=== PATIENT | male | born 1950 | race Caucasian/White ===

== ENCOUNTER 2016-09-13 05:44 | Day surgery (SDC) | payer OTHER ==
[2016-09-13] VITALS (8 sets, daily range): BP systolic 130–166; BP diastolic 69–91; PULSE 62–84; RESP 13–20; O2SAT 94–99
[~2016-09-13] VITALS: Ht 180.3 cm; Wt 109.7 kg
[~2016-09-13 05:44] MED LIST: AMLO5TAB2 PO; ATEN50TA PO; DICL100G8 TOPICAL; GLIP5TAB21 PO; KRIL1CAP2 PO; LOSA100T3 PO; Lactated Ringer's 1,000 ML IV ONE; METF-495 PO; MULT-1073 PO; PANT40TA2 PO; SILD100T PO; VIT1TABL83 PO
[2016-09-13] MEDS ORDERED: Propofol 10,000 mCg/mL 20 mL Inj ONE (05:45)
[2016-09-13] MEDS ORDERED: Ondansetron 2 mg/mL 2 mL Inj ONE (05:45)
[2016-09-13] MEDS ORDERED: Neostigmine 1 mg/mL 10 mL Inj ONE (05:45)
[2016-09-13] MEDS ORDERED: Glycopyrrolate 0.2 MG/ML 1mL Inj ONE (05:45)
[2016-09-13] MEDS ORDERED: fentaNYL-PF 50 mCg/mL 2 mL Inj ONE (05:45)
[2016-09-13] MEDS ORDERED: MetoCLOpramide 5 mg/mL 2 mL Inj ONE (05:45)
[2016-09-13] MEDS ORDERED: Succinylcholine Chloride 20 mg/mL 5 mL Inj ONE (05:45)
[2016-09-13] MEDS ORDERED: Rocuronium 10 mg/mL 5 mL Inj ONE (05:45)
[2016-09-13] MEDS ORDERED: Famotidine 20 mg/50 mL NS Premix IV ONE ×2 (05:45→07:10)
[2016-09-13] MEDS ORDERED: Lactated Ringer's 1,000 ML IV ONE ×2 (06:00→06:55)
[2016-09-13] MEDS ORDERED: Lactated Ringer's 500 ML IV PRN (07:42)
[2016-09-13] MEDS ORDERED: Lactated Ringer's 1,000 ML IV SCH (07:42)
[2016-09-13] MEDS ORDERED: MetoCLOpramide 5 mg/mL 2 mL Inj IVPUSH PRN (07:45)
[2016-09-13] MEDS ORDERED: Phenylephrine 10,000 mCg/mL Inj IVPUSH PRN (07:45)
[2016-09-13] MEDS ORDERED: fentaNYL-PF 50 mCg/mL 2 mL Inj IVPUSH PRN (07:45)
[2016-09-13] MEDS ORDERED: Labetalol 5 mg/mL 4 mL Inj IV PRN (07:45)
[2016-09-13] MEDS ORDERED: Atropine 0.4 mg/mL Inj IVPUSH PRN (07:45)
[2016-09-13] MEDS ORDERED: Ondansetron 2 mg/mL 2 mL Inj IVPUSH PRN (07:45)
[2016-09-13] MEDS ORDERED: HYDROmorphone 1 mg/mL Inj IVPUSH PRN (07:45)
[2016-09-13] MEDS ORDERED: EPHEDrine Sulfate 50 mg/mL Inj IVPUSH PRN (07:45)
--- NOTE | 2016-09-13 07:46 | PCM.HPANE ---
Patient Data Surgeon Admitting Provider: Attending Provider:Reza Talamantes DO Primary Care Physician:Bud Dior MD Other Provider:Shannan Gardner Anesthesia Reason for Visit Left Medial Meniscal Tear Ht/WT & BMI Height (Feet): 5 Height (Inches): 11 Weight (Kilograms): 109.7 Body Mass Index 33.00 Allergies Coded Allergies: sucralfate (Verified Adverse Reaction, Severe, SEVERE MUSCLE CRAMPS, ) Past Anesthesia History Anesthesia History: Denies:: Abnormal Airway, Anesthesia Reactions, Difficult Intubation, Fam Anesthesia Reaction, Fam Malignant Hypertherm, Malignant Hyperthermia Diabetes History Hx Diabetes?: Yes Type of Diabetes: Type II Glycemic Control: Oral Medication MRSA MRSA: No Medications Blood Thinner: Aspirin Hypertension Medication: Yes (LOSARTAN,AMLODIPINE) Home Meds Incl Beta Cheikh: Yes Date Beta Cheikh Taken: September 13, 2016 Time Beta Cheikh Taken: 0500 Reported Medications Diclofenac Gel (Voltaren Gel)100 Gm Tube1 Applic TOPICAL DAILY PRN PRN #1 TUBE 09/07/16 Krill Oil/[place]-3/Dha/Epa ([place]-3 Krill Oil Softgel)1 Each Capsule1 Each PO TID 09/07/16 Multivits-Min/FA/Lycopene/Lut (Centrum Silver Tablet)1 Each Tablet1 Each PO DAILY 09/07/16 Vit B Comp/C/FA/Iron/Vit E (Vitamin B Complex Tablet)1 Each Tablet1 Each PO DAILY 09/07/16 Amlodipine 5 Mg Tablet5 Mg PO DAILY Ref 0 09/07/16 Sildenafil Citrate (Viagra)100 Mg [id number] Mg PO UD PRN ERECTILE DYSFUNCTION Ref 0 09/03/14 Metformin ER 500 Mg Tab.er.241,000 Mg PO DAILYWD 30 Days Ref 0 09/03/14 Multivits-Min/FA/Lycopene/Lut (Centrum Silver Tablet)1 Each Tablet1 Each PO DAILY 09/03/[address] (Protonix)40 Mg Tablet.dr40 Mg PO BID 30 Days Ref 0 11/15/13 Glipizide ER 10 Mg Tab.er.2410 Mg PO BID 30 Days 11/15/13 Losartan Potassium (Cozaar)100 Mg Rqsxhi616 Mg PO DAILY 11/15/13 Atenolol 50 Mg Gjjjnf80 Mg PO DAILY #30 TABLET Ref 0 11/15/13 Discontinued Reported Medications Cholecalciferol (Vitamin D3) (Vitamin D3)4,000 Unit Capsule4,000 Unit PO DAILY 09/03/14 Tadalafil (Cialis)10 Mg Tpbgis31 Mg PO PRN PRN ERECTILE DYSFUNCTION 30 Days Ref 0 As directed by physician 09/03/14 Triamterene/HCTZ 37.5-25 mg (Dyazide 37.5-25 mg)1 Each Capsule1 Each PO DAILY 30 Days Ref 0 11/15/13 History History of ENT Problems?: Yes HEENT History: Positive for:: Dysphagia Sinus Problem (HX SINUSITIS) Denies:: Abnormal Airway Cataracts Difficult Intubation Glaucoma Hearing Problem TMJ Denture Type: None Teeth Condition: Within Normal Limits Hx of Heart Problems?: Yes Cardiovascular History: Positive for:: Hypertension (HYPERLIPIDEMIA) Denies:: AICD Abdominal Aortic Aneurism Atrial Fibrillation Cardiac Surgery Chest Pain Congestive Heart Failure Coronary Artery Disease Edema Heart Murmur Irregular Heartbeat Pacemaker Peripheral Vascular Rheumatic Fever Thrombophlebitis Valvular Heart Disease Hx of Respiratory Problem?: No Respiratory History: Denies:: Asthma COPD Chest Surgery Cough Dyspnea Emphysema Hemoptysis Oxygen Administration Pneumonia Pulmonary Embolism Tuberculosis Use of C-PAP Machine (SLEEP STUDY IN PAST-NO [place] RECOMMENDED) Use of Inhalers / NEBS Hx Neurologic Problems?: Yes Neurological History: Denies:: Alzheimer's Disease CVA Dementia Dizziness Headaches Multiple Sclerosis Parkinson's Disease Peripheral Neuropathy Seizures TIA Other Neurological Pertinent: C/OF INSOMNIA Hx of GI Problems?: Yes Gastrointestinal History: Positive for:: Gastroesphageal Reflux Heartburn Denies:: Cirrhosis Diverticulitis Gall Bladder Disease Gastrointestinal Bleeding Hepatitis Hiatal Hernia Liver Disease Rectal Bleeding Other GI Pertinent History: S/P UMBILICAL HERNIA RPR Hx of Problems?: Yes Genitourinary History: Positive for:: Kidney Stones (HX OF RT KIDNEY STONE- PROBABLY PASSED ON OWN) Denies:: HX of Hemodialysis Urinary Tract Infection HX of Peritoneal Dialysis: No Other Pertinent History: ED Male Hx: Denies:: Prostate Problems Scrotal Mass Testicular Surgery Skin History: Positive for:: History Skin Disorders? (S/P MOLE EXC RT LEG W/ POST OP INFECTION) Denies:: Pressure Ulcers Hx Musculoskeletal Problems?: Yes Musculoskeletal History: Positive for:: Musculoskeletal Trauma (LT KNEE MEDIAL MENISCAL TEAR=CURRENT PROBLEM) Denies:: Back Injury Degenerative Joint Fibromyalgia Joint Replacement Myasthenia Gravis Osteoarthritis (PSORIATIC ARTHRITIS) Rheumatoid Arthritis Systemic Lupus Hx of Psycho/Social Problems?: No Psycho Social History: Denies:: Anxiety Bipolar Disorder Hx Depression Suicide Attempt Hx Surgeries?: Yes (UMBILICAL HERNIA,EXC MOLE RT LEG) Hx Any Other Health Problems?: Yes Other History: Denies:: Cancer Endocrine Disease Hospitalization Thyroid Disease History Blood Transfusions: Positive for:: Accept Blood Products? Denies:: Blood Transfusions Hx Diabetes: Yes Hx Alcohol Use: NoHx Substance Use: No Smoking Status: Never Smoker Have You Smoked inLast 12 mo: No Stop/Bang S-Snoring: Do You Snore Loudly: No T-Tired: feel tired, fatigued: Yes O-Obsered: Observed not breath: No P-Blood Pressure: treated: Yes B- Body Mass Index > 35 kg/m2: No A- Age over 50: Yes N- Neck Large Circumference: Yes G- Gender Male: Yes JESSICA Total Score: 5 Risk Assessment Category Category 1A: Patient has history of documented sleep apnea, and HAS NOT received any narcotic, sedative or anesthesia administration during this stay. Category 1B: Patient has history of documented sleep apnea, and HAS received any narcotic , sedative or anesthesia administration during this stay Category 2: Patient has SUSPECTED Obstructive Sleep Apnea, and HAS received any narcotic , sedative or anesthesia administration during this stay. Category 3: Patient has SUSPECTED Obstructive Sleep Apnea and HAS NOT received narcotic, sedative or anesthesia administration during this stay. Category 4: Outpatient in Procedural Areas with known sleep apnea or who screen positive for High Risk via the STOP/BANG questionnaire. Exam Exam Vital Signs Vital Signs Date Time Temp Pulse Resp B/P Pulse Ox O2 Delivery O2 Flow Rate FiO2 09/13/16 06:53 36.3 69 16 147/91 96 Room Air General Appearance: Alert, Oriented X3, Cooperative, No Acute Distress HEENT/AIRWAY: MP 2 Lungs: Clear to Auscultation, Normal Air Movement Heart: Exam Unremarkable, Regular Rate/Rhythm, No Murmurs/Rubs/Gallops Meds/Labs/Diagnostics Admission Meds Current Medications Lactated Ringer's (Lr) 1,000 ml @ ud STK-MED ONCE IV Last administered on 09/13t 06:55; Start 09/13/16 at 06:55; Stop 09/13/16 at 06:56; Status DC Plan Impression Patient chart reviewed, patient interviewed and anesthestic plan with risks, benefits, and alternatives discussed, and informed consent obtained. NPO per Anesth. Guidelines: Yes ASA Physical Status: ASA2 Mod Systemic Disease Anesthetic Plan: GA Bene/Risks/Altern/Consents: Yes HP Complete Prior to Induction: Yes Reza Kerr MD September 13, 2016 06:59
[2016-09-13] MEDS ORDERED: Lidocaine 2%-Epi 1:100,000 20 mL Inj INFILTRATE ONE (07:52)
[2016-09-13] MEDS ORDERED: Ropivacaine-PF 0.5% 30 mL Inj INFILTRATE ONE (07:59)
[2016-09-13] MEDS ORDERED: HYDROcodone-APAP 5-325 mg Tablet PO PRN (08:20)
--- NOTE | 2016-09-13 09:23 | OP ---
[address] [address] OPERATIVE REPORT PATIENT: SAMANTHA REYNOSO : 1950 MR#: [id number] ADMIT: 09/13/2016 JOB ID: [id number] DATE OF SURGERY: 09/13/2016 PREOPERATIVE DIAGNOSIS(ES): Left knee torn medial meniscus. POSTOPERATIVE DIAGNOSIS(ES): Left knee torn medial meniscus. PROCEDURE: Left knee video arthroscopy with partial medial meniscectomy. SURGEON: Reza Talamantes D.O. ANESTHESIA: General. INDICATIONS: The patient is a 66-year-old male who injured his left knee and has had persistent pain. Had an MRI performed which demonstrated a torn medial meniscus. We discussed treatment options and he wished to proceed with a knee arthroscopy. We discussed the risks, benefits, and possible complications of surgery. All questions were answered and he wished to proceed. PROCEDURE IN DETAIL: The patient was brought to the operating room. He was given a general anesthetic and the left lower extremity was sterilely prepped and draped. An incision was made over the anterolateral knee at the level of joint line and the blunt trocar was introduced into the knee. Inspection was undertaken. He was found to have a torn medial meniscus. His cartilage was in very good condition in the patellofemoral joint as well as just some minor scuffing on the medial femoral condyle, C1-C2 type changes. His medial portal was established under needle localization and the meniscus was resected back to a stable base with a combination of biters and shaver. The ACL was found to be intact. The lateral compartment was in excellent condition without tears. The scope was then removed. The portals were closed with interrupted nylon suture. Naropin was added as an adjunct local anesthetic. Sterile dressings were applied. The patient tolerated the procedure well. Blood loss was minimal. POSTOPERATIVE PROTOCOL: Have the patient weightbear to tolerance. Use crutches as needed. Ice and elevate. Followup in two weeks or sooner if needed. He was given a prescription for [place] 5/325, #30 for pain.
--- NOTE | 2016-09-13 18:56 | PCM.ANEP1 ---
Post Anesthesia PACU Phase 1 Assessment Anesthetic Administered: GA Level of Alertness: Awake, talking [place]'s with Equal Strength: Yes Pain: No Nausea or Vomiting: No CV Function & Hydration Stable: Yes Airway Device: Oxygen Delivery: Room Air Lungs: Clear to Auscultation, Normal Air Movement Dermatome Level: Full Sensation PACU Phase 2 Assessment Complications: No Follow up Care: N/A Patient Instructions Provided: N/A Reza Kerr MD September 13, 2016 18:56
== END 2016-09-13 23:59 | disposition home or self-care (01) ==
LOC: SAS 05:44
PROVIDERS: ATTEND Orthopaedic Surgery
DX: S83.242A Other tear of medial meniscus, current injury, left knee, initial encounter (principal); I10 Essential (primary) hypertension; E78.5 Hyperlipidemia, unspecified; E11.9 Type 2 diabetes mellitus without complications; K22.70 Barrett's esophagus without dysplasia; K21.9 Gastro-esophageal reflux disease without esophagitis; R13.10 Dysphagia, unspecified; L40.50 Arthropathic psoriasis, unspecified; Z79.82 Long term (current) use of aspirin; Z87.442 Personal history of urinary calculi; Z79.84 Long term (current) use of oral hypoglycemic drugs
CPT/HCPCS: 29881; 97161; G8978; G8979; G8980; J0330; J1885; J2405; J2710; J2765; J2795; J3010; J3490; J7120

== ENCOUNTER 2016-11-18 10:41 | Emergency (ER) | payer OTHER ==
[~2016-11-18] VITALS: Ht 180.3 cm; Wt 109.1 kg
[~2016-11-18 10:41] MED LIST changes: -Lactated Ringer's 1,000 ML IV ONE
[2016-11-18 10:46] VITALS: BP 138/97; PULSE 115; RESP 18; O2SAT 96
[2016-11-18] MEDS ORDERED: 0.9% Sodium Chloride 1,000 ML IV ONE (11:36)
--- NOTE | 2016-11-18 11:37 | ED.REPORT ---
HPI-Abd Pain M 40 and Over Date of Service Nov 18, 2016 ED Provider: Madonna Phelan MD Quin is a 66-year-old male with a history of diabetes type II 3 days of abdominal pain. Initially noted in the epigastric region and right upper quadrant 3 days ago. Noted in the left lower quadrant radiating to back today. She discussed pain is constant and aching generally rates it 5 out of 10 with occasional increases to 7 out of 10 for no discernible reason. Associated with shaking chills, anorexia, nonbloody and nonbilious vomiting. Also reports mild lower back pain with deep inspiration. Patient denies bowel changes, melena, hematochezia, reports normal soft stools 2-3 times a day. Denies urinary symptoms such as hematuria, dysuria. Denies measured fever, unintentional weight loss. Patient reports a history of kidney stones though states this does not feel like kidney stones. Also reports a history of shingles and states that this does not feel like shingles. Further denies chest pain, palpitations , cough, wheeze, shortness of breath. Denies history of smoking. Nursing Notes Stated Complaint: ABDOMINAL PAIN Chief Complaint: Male Abdominal Pain Nursing Notes Reviewed: Yes Allergies: Coded Allergies: sucralfate (Verified Adverse Reaction, Severe, SEVERE MUSCLE CRAMPS, ) Scheduled Amlodipine (Amlodipine) 5 Mg Tablet 5 MG PO DAILY Atenolol (Atenolol) 50 Mg Tablet 50 MG PO DAILY Glipizide ER (Glipizide ER) 10 Mg Tab.er.24 10 MG PO BID Krill Oil/[place]-3/Dha/Epa ([place]-3 Krill Oil Softgel) 1 Each Capsule 1 EACH PO TID Losartan Potassium (Cozaar) 100 Mg Tablet 100 MG PO DAILY Metformin ER (Metformin ER) 500 Mg Tab.er.24 1,000 MG PO DAILYWD Multivits-Min/FA/Lycopene/Lut (Centrum Silver Tablet) 1 Each Tablet 1 EACH PO DAILY Multivits-Min/FA/Lycopene/Lut (Centrum Silver Tablet) 1 Each Tablet 1 EACH PO DAILY Pantoprazole DR (Protonix) 40 Mg Tablet.dr 40 MG PO BID Vit B Comp/C/FA/Iron/Vit E (Vitamin B Complex Tablet) 1 Each Tablet 1 EACH PO DAILY Scheduled PRN Diclofenac Gel (Voltaren Gel) 100 Gm Tube 1 APPLIC TOPICAL DAILY PRN PRN PRN Sildenafil Citrate (Viagra) 100 Mg Tablet 100 MG PO UD PRN PRN ERECTILE DYSFUNCTION General Time Seen by MD: 11:17 Chief Complaint Abdominal pain Hx Obtained From: Patient Arrived By: Walk-in Sudden in Onset?: Yes Onset Occurred: 3 days ago Symptom Duration: Since onset Recent Healthcare: No recent hospitalization, Recent doctor visit Similar Sx Previous: No Past Medical History Past Medical History Type 2 diabetes kidney stones Barretts esophagus Reports: Hypertension Past Surgical History L knee surgery Umbilical hernia repair (5 years ago) Smoking History Never Smoker Social History Alcohol Use: Denies alcohol use Other Social History: Good social support Ambulatory Status Independent Review of Systems General: Denies fever, admits chills and malaise HEENT: Denies congestion, headache, sore throat. Respiratory: Denies dyspnea, cough, shortness of breath, wheezing. Cardiovascular: Denies chest pain, palpitations. Gastrointestinal: Admits vomiting, abdominal pain. Denies diarrhea, melena, hematochezia Genitourinary: Denies frequency, urgency, dysuria, hematuria. Otherwise as noted in HPI. Complete sys rev & neg: except as marked. Physical Exam General: Well appearing, well developed, well nourished, no acute distress. Head: Atraumatic, normocephalic. Eyes: No scleral icterus or injection. No discharge. Vision grossly intact. ENT: Voice clear, hearing grossly intact. Respiratory: Regular rate and rhythm. Breath sounds present, clear to auscultation and equal bilaterally. No respiratory distress. No increased work of breathing, speaks in complete sentences. Cardiovascular: Regular rate and rhythm, without murmur, gallop or rub. No pedal edema. Gastrointestinal: Abdomen flat with mild global tenderness most prominently in the right upper quadrant. Bowel sounds normoactive. Back: Normal to inspection, negative midline spinous process tenderness, negative CVA tenderness, mild left SI tenderness. Skin: Warm and dry. Neurological: Grossly nonfocal. Psychological: Alert and oriented. Speech appropriate, linear and logical. Behavior appropriate. Initial Vital Signs Vital Signs (First) Date Time Temp Pulse Resp B/P Pulse Ox O2 Delivery O2 Flow Rate FiO2 11/18/16 10:46 36.7 115 18 138/97 96 Room Air Tachycardic, elevated blood pressure Initial VS: Reviewed Interpretation & Diagnostics Lab Results Interpretation Result Diagram: 11/18/16 1150 11/18/16 1150 Test 11/18/16 11:50 11/18/16 13:48 White Blood Count 13.1th/mm3 (3.8-10.1) Red Blood Count 4.72mil/mm3 (4.40-5.80) Hemoglobin 14.7g/dL (13.8-17.2) Hematocrit 41.7% (41.0-50.0) Mean Corpuscular Volume 88.3fL (81-100) Mean Corpuscular Hemoglobin 31.1pg (27.0-35.0) Mean Corpuscular Hemoglobin Concent 35.3% (32.0-37.0) Red Cell Distribution Width 13.6% (12.3-15.4) Platelet Count 237bil/L (150-400) Neutrophils (%) (Auto) 75.5% (40-74) Lymphocytes (%) (Auto) 14.4% (14-46) Monocytes (%) (Auto) 9.5% (4-12) Eosinophils (%) (Auto) 0.2% (0-5) Basophils (%) (Auto) 0.2% (0-3) Sodium Level 140mEq/L (134-144) Potassium Level 3.6mEq/L (3.5-5.2) Chloride Level 100mEq/L (97-108) Carbon Dioxide Level 22mmol/L (18-29) Blood Urea Nitrogen 16mg/dL (8-27) Creatinine 1.03mg/dL (0.76-1.27) Estimat Glomerular Filtration Rate 77mL/min (>59) Glucose Level 177mg/dL (60-99) Calcium Level 9.5mg/dL (8.5-10.1) Magnesium Level 1.9mg/dL (1.6-2.6) Total Bilirubin 0.7mg/dL (0.0-1.2) Aspartate Amino Transf (AST/SGOT) 15U/L (0-50) Alanine Aminotransferase (ALT/SGPT) 19U/L (0-44) Alkaline Phosphatase 62U/L (25-160) Troponin T < 0.010ug/L (0.0-0.011) Total Protein 7.7g/dL (6.4-8.4) Albumin 4.4g/dL (3.4-5.0) Lipase 35U/L (13-60) Urine Color Yellow (YELLOW) Urine Appearance Hazy (CLEAR,HAZY) Urine pH 6.0 (5.0-8.0) Urine Specific [place] 1.015 (1.003-1.035) Urine Protein 30mg/dL (NEG,TRACE) Urine Glucose (UA) Negativemg/dL (NEGATIVE) Urine Ketones Negativemg/dL (NEGATIVE) Urine Occult Blood Negative (NEGATIVE) Urine Nitrite Negative (NEGATIVE) Urine Bilirubin Negative (NEGATIVE) Urine Urobilinogen Normalmg/dL (NORMAL) Urine Leukocyte Esterase Negative (NEGATIVE) Urine RBC 0-2/hpf (0-2) Urine WBC 0-5/hpf (0-5) Urine Epithelial Cells Occasional/hpf (NONE-MOD) Urine Crystals Amorphous urates (NONE Urine Bacteria None/hpf (NONE-FEW) Urine Hyaline Casts None/lpf (NONE) Urine Granular Casts None seen (NONE SEEN) Urine Waxy Casts None seen (NONE SEEN) Urine Red Blood Cell Casts None seen (NONE SEEN) Urine White Blood Cell Casts None seen (NONE SEEN) Urine Mucus None seen (None Seen) Urine Trichomonas None seen (NONE SEEN) Urine Yeast None (NONE SEEN) Urinalysis Comment None Urine Culture Reflexed Not indicated ECG Interpretation ECG Interpretation: Rate 89 NSR Inferior infarct, old Time: 13:39 Interpreted by: ED physician CT Abd / Pelvis Interpretation IMPRESSION: Suspect mild pancreatitis at the pancreatic head given the pattern of mild edema in that region. No biliary distention or mass lesion is found. Normal appendix identified. Dictated by: Casey Mendes M.D. on 11/18/2016 at 14:18 Approved by: Casey Mendes M.D. on 11/18/2016 at 14:21 Study type: Abdom CT oral contrast Interpretation / Wet Read by: Interpret - Radiologist Re-Eval/Medical Decision Med Decision/Clinical Course Harshil a 66-year-old male with a history of diabetes type II presenting with chief complaint of somewhat amorphous abdominal pain over the last 3 days associated with anorexia, vomiting and chills. Patient denies bowel changes, chest pain, shortness of breath. Physical examination reveals diffuse tenderness over the abdomen most pronounced in the right upper quadrant flank. Negative CVA tenderness. Otherwise benign. Tachycardia is noted in triage but unremarkable on examination. Treatment is initiated with 1 L and S, Dilaudid, ondansetron. labs are drawn include a CBC, CMP, lipase, troponin. EKG is performed and CT abdomen and pelvis with contrast is ordered after discussion with Dr. Phelan. At this time differential diagnosis includes cholecystitis, appendicitis, pancreatitis, diverticulitis, gastritis, cystitis, nephrolithiasis, AAA, DC. Time of Eval: 15:37 Re-Evaluation/Progress Note: Pt rechecked. Informed pt of plan for treatment. Pt understands and agrees with plan for treatment. F/U instructions and RTER warnings given. All questions addressed. Counseled Regarding: Diagnosis, Lab results, Need for follow-up, When/why to return to ED Discharge & Departure Primary Impression: Generalized abdominal pain Disposition: Home Vital Signs - All Vital Signs Date Time Temp Pulse Resp B/P Pulse Ox O2 Delivery O2 Flow Rate FiO2 11/18/16 16:01 36.1 83 153/88 11/18/16 10:46 36.7 115 18 138/97 96 Room Air )( All Prior VS Reviewed: Yes Condition: Stable Additional Instructions: Thank for you entrusting us with your care today. You were diagnosed with abdominal pain. Your imaging and lab results all appeared to be normal besides a slightly elevated white blood count. Your CT scan did not show any acute life- threatening issues. There is no reason to suspect you will need emergent surgery nor any need for antibiotics. I am going to send him home. I am specifically not sending him home with any narcotic pain medication. If you get worse I do want to return to the emergency department. You can follow up with your primary care provider with any further questions. Please return to the emergency department if you experience any new or worsening symptoms. I hope you feel better soon. Referrals: Bud Dior MD (PCP) EDSupervising Provider for APC: Madonna Phelan MD Scribe Attestation Portions of this note were transcribed by Buddy Griffin. I, Dr. Phelan personally performed the history, physical exam and medical decision-making; I reviewed and confirmed the accuracy of the information in the transcribed note. copies to: Bud Dior MD, Seth PA-C Nov 18, 2016 11:37 Buddy Griffin Nov 18, 2016 14:41 Madonna Phelan MD Nov 18, 2016 19:00
[2016-11-18] MEDS ORDERED: Ondansetron 2 mg/mL 2 mL Inj IVPUSH ONE (11:40)
[2016-11-18] MEDS: HYDROmorphone 0.5 mg/0.5 mL iSecure Syringe IVPUSH PRN ×3 (12:13→15:52)
[2016-11-18 12:23] LABS: BASOPHILS % (AUTO) 0.2 % (0-3); EOSINOPHILS % (AUTO) 0.2 % (0-5); MONOCYTES % (AUTO) 9.5 % (4-12); Mean Corpuscular Hemoglobin 31.1 pg (27.0-35.0); Mean Corpuscular Volume 88.3 fL (81-100); NEUTROPHILS % (AUTO) 75.5 % (40-74); Platelet Count 237 bil/L (150-400)
[2016-11-18 13:00] LABS: Lipase 35 U/L (13-60); Magnesium 1.9 mg/dL (1.6-2.6)
[2016-11-18 13:03] LABS: TROPONIN T < 0.010 ug/L (0.0-0.011)
[2016-11-18 14:15] LABS: APPEARANCE,URINE HAZY (CLEAR,HAZY); COLOR,URINE YELLOW (YELLOW)
[2016-11-18 14:16] LABS: OCCULT BLOOD,URINE NEGATIVE (NEGATIVE); UROBILINOGEN,URINE NORMAL (NORMAL)
--- NOTE | 2016-11-18 14:23 | DRSVH ---
PROCEDURE: CT ABDOMEN AND PELVIS WITH CONTRAST ([id number]) INDICATIONS: pain TECHNIQUE: After the administration of intravenous contrast, 5 mm thick sections acquired from the diaphragm to the symphysis. 5 mm coronal and sagittal reformats were acquired. For radiation dose reduction, the following was used: automated exposure control, adjustment of mA and/or kV according to patient juancarlos shepherd. COMPARISON: [facility], CT, ABD/PELVIS W/CON (PNL), 01/24/2014, 11:07. FINDINGS: Image quality: Excellent. ABDOMEN: Lung bases: Lung bases are clear. Heart size is normal. Solid organs: Liver and spleen are normal in size and enhancement. Gallbladder appears normal. Edson iary system is non dilated. Pancreas enhances normally through the neck, body and tail but the pancr eatic head appears mildly edematous. No adrenal nodules. Kidneys demonstrate normal size and enhanc ement, without hydronephrosis. Several scattered right renal cortical cysts are incidentally noted. Peritoneum and bowel: Bowel loops demonstrate normal wall thickness and caliber. No free fluid or a ir. Nodes and vessels: No retroperitoneal or mesenteric adenopathy by size criteria. Aorta and inferior vena cava are normal in size. Miscellaneous: No ventral hernias. PELVIS: Genitourinary: Bladder wall thickness is normal. Miscellaneous: No inguinal hernias or adenopathy. Normal appendix found. Bones: No suspicious bony lesions. No vertebral body compression fractures. IMPRESSION: Suspect mild pancreatitis at the pancreatic head given the pattern of mild edema in that region. No biliary distention or mass lesion is found. Normal appendix identified. Dictated by: Casey Mendes M.D. on 11/18/2016 at 14:18 Approved by: Casey Mendes M.D. on 11/18/2016 at 14:21
[2016-11-18] MEDS ORDERED: HYDROmorphone 0.5 mg/0.5 mL iSecure Syringe IVPUSH ONE (15:45)
[2016-11-18 16:01] VITALS: BP 153/88; PULSE 83
== END 2016-11-18 16:09 | disposition home or self-care (01) ==
LOC: SED 10:41
DX: R10.84 Generalized abdominal pain (principal); E11.9 Type 2 diabetes mellitus without complications; I10 Essential (primary) hypertension; Z79.84 Long term (current) use of oral hypoglycemic drugs; Z87.442 Personal history of urinary calculi
CPT/HCPCS: 36415; 74177; 80053; 81000; 83690; 83735; 84484; 85025; 93005; 96361; 96374; 96375; 99285; J1170; J2405; J7030; Q9967